=== PATIENT | male | born 1940 | race Two or more races ===

== ENCOUNTER → 2023-10-30 15:03 | Outpatient (REF) | payer BC, SELFPAY | LOC: HWRAD 15:03 | PROVIDERS: ATTENDING PHYSICIAN Registered Nurse; FAMILY PHYSICIAN Family Medicine | DX: M54.50 Low back pain, unspecified (principal) | CPT/HCPCS: 72110 ==

== ENCOUNTER → 2023-11-09 15:33 | Outpatient (REF) | payer BC, SELFPAY | LOC: HWRAD 15:33 | PROVIDERS: ATTENDING PHYSICIAN Registered Nurse | DX: S22.080A Wedge compression fracture of T11-T12 vertebra, initial encounter for closed fracture (principal) | CPT/HCPCS: 77080 ==

== ENCOUNTER → 2024-09-09 17:05 | Outpatient (REF) | payer BC, SELFPAY | LOC: RAD 17:05 | PROVIDERS: ATTENDING PHYSICIAN Family Medicine | DX: M79.642 Pain in left hand (principal) | CPT/HCPCS: 73110; 73120 ==

== ENCOUNTER 2025-02-10 18:27 | Emergency (ER) | payer BC, SELFPAY ==
[2025-02-10 18:31] VITALS: BP 142/72
[2025-02-10 18:58] LABS: Hematocrit 29.2 % (39.0-52.0); Hemoglobin 8.6 g/dL (13.0-18.0); Mean Corp Hgb Conc. 29.5 g/dL (33.0-37.0); Mean Corpuscular Volume 75.8 fL (80.0-94.0); Nucleated Red Blood Cells % 0 % (-); Platelet Count 151 10^3/uL (130-400); Red Cell Dist. Width 18.5 % (11.5-14.5)
[2025-02-10 19:09] LABS: ALT (SGPT) 18 U/L (0-50); AST (SGOT) 22 U/L (17-59); Albumin 3.8 g/dl (3.5-5.0); Alkaline Phosphatase 46 U/L (38-126); Blood Urea Nitrogen 13 mg/dl (9-20); Calcium 9.1 mg/dl (8.4-10.2); Carbon Dioxide 27 mmol/L (22-30); Chloride 105 mmol/L (98-107); Glucose 214 mg/dl (70-99); Potassium 4.5 mmol/L (3.5-5.1); Sodium 133 mmol/L (135-145); Total Protein 6.4 g/dl (6.3-8.2); eGFR > 60.00
== END 2025-02-10 21:23 ==
LOC: EMR 18:27
PROVIDERS: Student in an Organized Health Care Education/Training Program
DX: R79.89 Other specified abnormal findings of blood chemistry (principal)
CPT/HCPCS: 80053; 85025; 86850; 86900; 86901

== ENCOUNTER 2025-02-11 06:52 | Emergency (ER) | payer BC, SELFPAY ==
[2025-02-11 07:00] VITALS: BP 124/59
[2025-02-11 07:29] LABS: Hematocrit 27.6 % (39.0-52.0); Hemoglobin 8.4 g/dL (13.0-18.0); Mean Corp Hgb Conc. 30.4 g/dL (33.0-37.0); Mean Corpuscular Volume 76.0 fL (80.0-94.0); Nucleated Red Blood Cells % 0 % (-); Platelet Count 149 10^3/uL (130-400); Red Cell Dist. Width 18.3 % (11.5-14.5)
[2025-02-11 07:48] LABS: ALT (SGPT) 16 U/L (0-50); AST (SGOT) 16 U/L (17-59); Albumin 3.6 g/dl (3.5-5.0); Alkaline Phosphatase 40 U/L (38-126); Blood Urea Nitrogen 12 mg/dl (9-20); Calcium 8.8 mg/dl (8.4-10.2); Carbon Dioxide 26 mmol/L (22-30); Chloride 107 mmol/L (98-107); Glucose 103 mg/dl (70-99); Potassium 4.0 mmol/L (3.5-5.1); Sodium 136 mmol/L (135-145); Total Protein 6.1 g/dl (6.3-8.2); eGFR > 60.00
[2025-02-11 09:57] VITALS: BP 143/66
[2025-02-11 10:17] LABS: Iron 32 ug/dl (49-181)
--- NOTE | 2025-02-11 10:20 | ED.GENMED ---
History of Present Illness
General
Chief Complaint: Abnormal Lab Value
Time Seen by Provider: 02/11/25 09:16
History of Present Illness
History of Present Illness:
84-year-old male presents with his daughter for evaluation of low hemoglobin and exertional shortness of breath. He is apparently been short of breath for quite some time with intermittent wheezing but with recent outpatient labs showing a
hemoglobin of 9 he was referred to the ED. He is undergoing lab evaluation as part of outpatient management for myasthenia gravis. Recently mycophenolate was added to his regimen in addition to chronic prednisolone, he does take omeprazole daily.
Denies any black or bloody stool. No chest pain or fevers.
Past History
Past History
ED Past Medical History: NIDDM, Other (Ocular Myasthenia Gravis) and Other (BPH)
ED Past Surgical History: Orthopedic
Social History
Tobacco: Non-smoker
Alcohol: None
Personal:
Living: with family
Review of Systems
Review of Systems
Allergies reviewed?: Yes
All Other Systems: ROS reviewed and negative except as documented in HPI and ROS
Phy Exam
Physical Exam
Physical Exam:
GEN: Well appearing, NAD, WDWN
HEENT: Oral mucosa moist, no scleral icterus
Cardiac: Regular rate and rhythm, no murmurs
Lung: No respiratory distress, no tachypnea, lungs clear to auscultation bilaterally
Abdomen: Soft, grossly nontender
Rectal: Brown stool in the rectal vault heme-negative
MSK: No gross deformity or injuries
Skin: Good color, no pallor or jaundice, no rashes
Neuro: AO x3, moves all extremities freely
Psych: Calm, cooperative
Course
Orders/Labs/Results
Orders:
Orders
02/11/25 07:12
CMP [Comprehensive Metabolic Panel] Urgent
Complete Blood Count/With Diff Urgent
Ferritin Urgent
Comment: ADD
Iron Urgent
Comment: ADD
Total Iron Binding Urgent
Comment: ADD
02/11/25 09:23
Add On- LAB Urgent
Tests Added?: ferritin, iron, TIBC
02/11/25 09:48
CR Chest - 2 Views Urgent
Comment:
Reason For Exam: SOB
Abnormal Lab Results
02/11/25
07:12
RBC 3.63 L 10^6/uL
(4.70-6.10)
Hgb 8.4 L g/dL
(13.0-18.0)
Hct 27.6 L %
(39.0-52.0)
MCV 76.0 L fL
(80.0-94.0)
MCH 23.1 L pg
(27.0-31.0)
MCHC 30.4 L g/dL
(33.0-37.0)
RDW 18.3 H %
(11.5-14.5)
MPV 11.4 H fL
(7.4-10.4)
Monocytes % 10.4 H %
(1.7-9.3)
Glucose 103 H mg/dl
(70-99)
Iron 32 L ug/dl
(49-181)
% Saturation 7 L %
(20-50)
AST 16 L U/L
(17-59)
Total Protein 6.1 L g/dl
(6.3-8.2)
02/11/25 07:12
02/11/25 07:12
Vital Signs
Initial and Last Documented VS:
Initial Vital Signs
Temp Pulse Resp BP Pulse Ox
98.8 F 69 18 124/59 100
02/11/25 07:00 02/11/25 07:00 02/11/25 07:00 02/11/25 07:00 02/11/25 07:00
Last Documented Vital Signs
Temp Pulse Resp BP Pulse Ox
98.8 F 60 17 143/66 100
02/11/25 07:00 02/11/25 09:57 02/11/25 09:57 02/11/25 09:57 02/11/25 10:21
MDM/Problems Addressed
MDM/Problems Addressed:
Patient's gradual progressive anemia could be due to intestinal malabsorption from chronic steroid use versus related to her recently initiated mycophenolate. Will start him on high-dose PPIs empirically and refer to GI as an outpatient, will also
start him on oral iron supplementation. I sent a [employer] message to his primary care physician discussing the plan and I am hopeful he can be referred for outpatient iron infusions. In regards to shortness of breath this is most likely a
product of his worsening anemia however cannot discount potential underlying chronic pulmonary condition given the fibrotic appearing changes on chest x-ray, will recommend outpatient pulmonology follow-up. No active wheezing to suggest need for
steroids or nebulizer at this point
*Pulse Oximetry
SaO2: 100
Oxygen Mode of Delivery: Room air
Patient hypoxic: no
*Critical Care Note
Total Time (30-74mins, 75-104mins- exclusive of procedures): Not Applicable
ED Attending Note
-
Portions of this chart may have been created with voice recognition software.� Occasional wrong word or��sound alike� substitutions may have occurred due to the inherent limitations of voice recognition software.
Discharge Plan
Departure
Patient Disposition: Home (Routine Discharge)
Date of Disposition: 02/11/25
Time of Disposition: 10:32
Patient with high blood pressure during this ER visit?: No
Discharge Problem:
Iron deficiency anemia
Instructions: Anemia in adults, possibly from low iron - ED discharge instructions
Prescriptions:
New
pantoprazole 40 mg tablet,delayed release (DR/EC)
40 mg PO BID Qty: 30 0RF
ferrous sulfate 325 mg (65 mg iron) tablet
325 mg PO BID Qty: 60 0RF
No Action
wwkbpedesg-knpogasfghjzg-stmp [Fioricet] 50-300-40 mg capsule
1 cap PO Q8H PRN (Reason: Pain) Qty: 10 0RF
Referrals:
Jack Parham Jr., DO [Family Provider, Internal Medicine]
Hanna Harris MD [Active, Gastroenterology]
Referral Note: Clinic will contact you for appointment
Carlin Patterson MD [Active, Pulmonary Medicine]
Activity Restrictions/Additional Instructions:
Stop your omeprazole in favor of pantoprazole for the next 2 weeks
Begin oral iron supplementation
Follow-up with your primary care provider for outpatient iron infusions
Discuss potentially stopping the mycophenolate with your primary neurologist
For your shortness of breath, please follow up with pulmonology, as your lung x ray shows changes of either scarring or fibrosis
Interventions
Interventions:
*Risk Screen - Suicide Last Done: 02/11/25 07:00
*General Assessment Last Done: 02/11/25 09:55
*Neglect/Abuse Screening Last Done: 02/11/25 09:55
*ED COVID-19 Vaccine History Last Done: 02/11/25 09:55
Discharge Date and Time
Print Language: POLISH
[2025-02-11 10:27] LABS: Total Iron Binding Capacity 402 ug/dl (261-462)
[2025-02-11 11:14] LABS: Ferritin 7.7 ng/ml (17.9-464.0)
== END 2025-02-11 10:58 | disposition home or self-care (01) ==
LOC: EMR 06:52
PROVIDERS: Emergency Medicine; EMERGENCY PHYSICIAN Student in an Organized Health Care Education/Training Program; FAMILY PHYSICIAN Family Medicine
DX: D50.9 Iron deficiency anemia, unspecified (principal); E11.9 Type 2 diabetes mellitus without complications; G70.00 Myasthenia gravis without (acute) exacerbation; N40.0 Benign prostatic hyperplasia without lower urinary tract symptoms; Z79.624 Long term (current) use of inhibitors of nucleotide synthesis
CPT/HCPCS: 99284; 71046; 80053; 82728; 83540; 83550; 85025

== ENCOUNTER 2025-03-03 07:20 | Emergency (ER) | payer BC, SELFPAY ==
[2025-03-03 07:24] VITALS: BP 167/73
--- NOTE | 2025-03-03 07:47 | ED.GENMED ---
History of Present Illness
General
Chief Complaint: Fall
Source: patient and family
Exam Limitations: none
Time Seen by Provider: 03/03/25 07:26
History of Present Illness
History of Present Illness:
See MDM
Past History
Past History
ED Past Medical History: NIDDM, Other (Ocular Myasthenia Gravis) and Other (BPH)
ED Past Surgical History: Orthopedic
Social History
Tobacco: Non-smoker
Alcohol: None
Personal:
Living: with family
Phy Exam
Physical Exam
Physical Exam:
See MDM
Course
Orders/Labs/Results
Orders:
Orders
03/03/25 07:47
CT Facial Bones W/o Iv Contras Urgent
Comment:
Reason For Exam: fall, facial pain and nasal bleeding
CT Head W/o Iv Contrast Urgent
Comment:
Reason For Exam: fall, left forehead injury
03/03/25 09:44
Amoxicillin 875 mg/Clav 125 mg [Augmentin 875 mg/125 mg] 1 tablet PO NOW STA
03/03/25 09:45
CR Chest - 2 Views Urgent
Comment:
Reason For Exam: fall, left and center chest pain
03/03/25 10:24
Oxycodone [Roxicodone] 5 mg PO NOW STA
Vital Signs
Initial and Last Documented VS:
Initial Vital Signs
Temp Pulse Resp BP Pulse Ox
98.0 F 79 16 167/73 97
03/03/25 07:24 03/03/25 07:24 03/03/25 07:24 03/03/25 07:24 03/03/25 07:24
Last Documented Vital Signs
Temp Pulse Resp BP Pulse Ox
98.0 F 79 16 167/73 97
03/03/25 07:24 03/03/25 07:24 03/03/25 07:24 03/03/25 07:24 03/03/25 07:51
Procedures
Laceration Closure
Left Upper Lateral Eye brow:
Status of Wound: clean
Size of Wound in cm: 1.5
Description of Wound Edges: ragged
Preparation: cleaned with soap & water
Anesthesia: 1% Lidocaine with epi
Revision/Debridement: routine- no revision
Wound exploration: explored to base- no FB
Type of Closure: single layer closure
Skin Closure Material: 6-0 nylon
Number of sutures: 2
MDM/Problems Addressed
Differential Diagnosis Includes:
Note:
CHIEF COMPLAINT(S)
Fall with facial injury.
HISTORY OF PRESENT ILLNESS
The patient is an 85-year-old male who experienced a fall at approximately 6:30 AM. He reported attempting to go to the bathroom when he tripped over the bed frame, leading to a fall and subsequent facial injury. On examination, there is significant
bleeding and a laceration above the area of the left eye. The patient also reports difficulty with vision in the affected eye, compounded by a history of ocular myasthenia, which involves weakness of the eyelid muscles. At the moment, patient
denies any change in his baseline vision. The patient is currently under medication for this condition. A thorough examination of the left nare revealed a smaller cut that is expected to heal on its own, but the primary laceration will require
sutures after local anesthesia is administered. A computed tomography (CT) scan of the head and face is planned to assess for any additional injuries such as fractures or intracranial trauma.
Patient apparently is a history of anemia but daughter at bedside states that he had recent blood work showing no changes. He denies any recent bleeding issues.
PAST MEDICAL AND SURIGICAL HISTORY
The patient is known to have ocular myasthenia.
PHYSICAL EXAM
General: Alert, no acute distress.
Skin: Warm, dry.
Head: Normocephalic, atraumatic
Neck: Appears supple, trachea midline.
Eyes, Ears, Nose, Mouth, and Throat: Large hematoma to left upper eyelid with 1.5 cm laceration. Mild chemosis noted to left eye. No hyphema noted
Cardiovascular: No signs of cyanosis
Respiratory: Respirations are non-labored.
Abdomen: Non-distended
Musculoskeletal: No deformities
Neurological: No focal neurological deficit observed.
Psychiatric: Cooperative, appropriate mood and affect.
PLAN
- Administer local anesthesia to the laceration site and suture the wound.
- Perform a CT scan of the head and face to evaluate for any associated fractures or intracranial injuries.
- Monitor and address any further complications related to the ocular myasthenia and ensure appropriate management of the condition.
DIFFERENTIAL DIAGNOSIS
The Differential Diagnosis includes, in no particular order and is not limited to:
1. Facial laceration
2. Orbital fracture
3. Intracranial hemorrhage
4. Concussion
5. Nasal fracture
6. Vision impairment due to trauma
7. Aggravation of ocular myasthenia
8. Soft tissue infection
9. Fracture of the frontal bone
10. Hematoma formation in the periorbital region
03/03/25 - 09:51
Patient and family informed about CT findings, noting zygomatic arch and orbital wall fractures. Patient remains well-appearing and non-toxic. Ice applied to affected area. Due to concern for blood in the sinus, empiric treatment with Augmentin
initiated.
SUMMARY OF ENCOUNTER
The patient, an 85-year-old male, presented to the emergency department following a fall resulting in a facial injury. A laceration above the left eye required assessment for potential sutures. Notable findings included a significant facial
laceration and concern for orbital injuries. The patient has a history of ocular myasthenia complicating his visual assessment. A computed tomography (CT) scan of the head and face confirmed zygomatic arch and orbital wall fractures. Due to
potential blood in the sinus, empiric treatment with amoxicillin and clavulanate potassium was initiated.
DISPOSITION
Discharge.
ASSESSMENT
Facial injury post-fall with confirmed zygomatic arch and orbital wall fractures, potentially with sinus involvement.
EMERGENCY TREATMENTS ADMINISTERED
First dose of amoxicillin and clavulanate potassium administered in the emergency department.
PLAN
The patient will be referred to oral surgery physician. Ice and pain management were discussed for symptomatic relief. Continual monitoring for any worsening symptoms is advised.
INDEPENDENT REVIEW OF LABS AND INTERPRETATION OF TESTS
My independent interpretation of the CT scan of the head and face indicates zygomatic arch and orbital wall fractures.
MEDICATION RECONCILIATION
Amoxicillin and clavulanate potassium (Augmentin) initiated in the emergency department.
MEDICAL DECISION MAKING
- Number and Complexity of Problems Addressed: Chronic conditions affecting care include ocular myasthenia.
- Data:
Category 1: My independent interpretation of the CT scan shows zygomatic arch and orbital wall fractures.
- Risk: Prescription medication was prescribed; amoxicillin and clavulanate potassium for empiric treatment due to concerns of sinus involvement.
Consideration of Admission/Observation: Escalation of care including admission/observation was considered given the complexity and risk of the patients presenting complaint, exam findings, and their underlying comorbidities. However, ultimately I
feel the patient is safe for outpatient management with close follow-up. Reasoning: Work-up reassuring, does not reveal any acute life/organ-threatening processes, patients symptoms well controlled upon reevaluation, reexamination is reassuring,
vitals are stable, patient agreeable with discharge, reliable for follow-up.
DIAGNOSIS
- Facial laceration, ICD-10 Code: S01.81XA
- Zygomatic arch fracture, ICD-10 Code: S02.40XA
- Orbital wall fracture, ICD-10 Code: S02.3XXA
*Pulse Oximetry
SaO2: 97
Oxygen Mode of Delivery: Room air
Patient hypoxic: no
*Critical Care Note
Total Time (30-74mins, 75-104mins- exclusive of procedures): Not Applicable
ED Attending Note
-
Portions of this chart may have been created with voice recognition software.� Occasional wrong word or��sound alike� substitutions may have occurred due to the inherent limitations of voice recognition software.
Discharge Plan
Departure
Patient Disposition: Home (Routine Discharge)
Date of Disposition: 03/03/25
Time of Disposition: 10:16
Patient with high blood pressure during this ER visit?: Yes
Discharge Problem:
Closed fracture of zygomatic arch, Closed fracture of orbital wall
Instructions: BLOOD PRESSURE
Prescriptions:
New
amoxicillin-pot clavulanate 875-125 mg tablet
1 tab PO BID Qty: 14 0RF
oxycodone 5 mg tablet
5 mg PO Q8H PRN (Reason: Pain) Qty: 14 0RF
No Action
yhyhmewotx-phadrsobobymi-hext [Fioricet] 50-300-40 mg capsule
1 cap PO Q8H PRN (Reason: Pain) Qty: 10 0RF
pantoprazole 40 mg tablet,delayed release (DR/EC)
40 mg PO BID Qty: 30 0RF
ferrous sulfate 325 mg (65 mg iron) tablet
325 mg PO BID Qty: 60 0RF
Referrals:
Jack Parham Jr., DO [Family Provider, Internal Medicine]
Dash Mcleod MD, DDS [Active, Oral Surgery]
Activity Restrictions/Additional Instructions:
Please return for any worsening symptoms.
You may return at any time if you have further concerns.
Please follow up with your doctor at the first available appointment, preferably this week.
Please make an appointment to see the maxillofacial surgeon soon as possible.
Thank you for choosing [facility].
Interventions
Interventions:
*Risk Screen - Suicide Last Done: 03/03/25 07:24
*Neglect/Abuse Screening Last Done: 03/03/25 07:24
ED-Musculoskeletal Assessment Last Done: 03/03/25 07:49
ED- Neurological Assessment Last Done: 03/03/25 07:49
ED-Skin Assessment Last Done: 03/03/25 07:49
Discharge Date and Time
Print Language: KOSOVAN
[2025-03-03] MEDS: AUGMENTIN 875 MG/125 MG 1 TABLET PO (10:31)
[2025-03-03] MEDS: ROXICODONE 5 MG PO (10:31)
== END 2025-03-03 10:50 | disposition home or self-care (01) ==
LOC: EMR 07:20
PROVIDERS: EMERGENCY PHYSICIAN Student in an Organized Health Care Education/Training Program; FAMILY PHYSICIAN Family Medicine
DX: S02.40FA Zygomatic fracture, left side, initial encounter for closed fracture (principal); S02.842A Fracture of lateral orbital wall, left side, initial encounter for closed fracture; S02.32XA Fracture of orbital floor, left side, initial encounter for closed fracture; S02.42XA Fracture of alveolus of maxilla, initial encounter for closed fracture; S01.112A Laceration without foreign body of left eyelid and periocular area, initial encounter; E11.9 Type 2 diabetes mellitus without complications; G70.00 Myasthenia gravis without (acute) exacerbation; N40.0 Benign prostatic hyperplasia without lower urinary tract symptoms; W01.190A Fall on same level from slipping, tripping and stumbling with subsequent striking against furniture, initial encounter; Y92.003 Bedroom of unspecified non-institutional (private) residence as the place of occurrence of the external cause
CPT/HCPCS: 99284; 12011; 70450; 70486; 71046

== ENCOUNTER 2025-03-10 15:27 | Outpatient (RCR) | payer BC, SELFPAY ==
[2025-03-10 14:45] LABS: Hematocrit 31.5 % (39.0-52.0); Hemoglobin 9.5 g/dL (13.0-18.0); Mean Corp Hgb Conc. 30.2 g/dL (33.0-37.0); Mean Corpuscular Volume 79.3 fL (80.0-94.0); Platelet Count 142 10^3/uL (130-400); Red Cell Dist. Width 21.7 % (11.5-14.5)
== END 2025-03-25 23:59 | disposition home or self-care (01) ==
LOC: OID 15:27
PROVIDERS: ATTENDING PHYSICIAN Registered Nurse
DX: D50.8 Other iron deficiency anemias (principal); R53.81 Other malaise
CPT/HCPCS: 85025

== ENCOUNTER → 2025-03-18 12:59 | Outpatient (REF) | payer BC, SELFPAY | LOC: RAD 12:59 | PROVIDERS: ATTENDING PHYSICIAN Registered Nurse | DX: M54.50 Low back pain, unspecified (principal) | CPT/HCPCS: 72110; 73502 ==

== ENCOUNTER 2025-03-19 10:39 | Emergency (ER) | payer OTHER, SELFPAY ==
[2025-03-19 10:52] VITALS: BP 107/53
--- NOTE | 2025-03-19 12:04 | ED.GENMED ---
History of Present Illness
General
Chief Complaint: Back Pain
Source: patient
Exam Limitations: none
Time Seen by Provider: 03/19/25 11:46
Nursing documentation reviewed up to this point in time: agreed with
History of Present Illness
History of Present Illness:
85-year-old male with a past medical history as noted presents to the ER with his daughters for evaluation of back pain. Patient reportedly has a T12 compression fracture from prior falls which is known. Apparently 2 weeks ago had a minor fall
onto his bottom�daughter said that he was trying to sit down and missed the chair and landed on his bottom forcefully. Since that time he has had worsening pain in the right side of his low back and he has been having radicular symptoms down the
right leg which she describes as 'like an electric current.' Symptoms are worse with movement and particularly with ambulation. No incontinence of bowel or bladder, weakness or numbness in the legs, no symptoms in the left leg. Patient seen by
his primary doctor 2 days ago and was prescribed prednisone taper (currently on day 3) and muscle relaxer which has not resulted in any improvement in symptoms. Given his functional limitations daughters brought him to the ER to be assessed. He
did have outpatient imaging with x-ray of the lumbar spine and hip done on 03/18�x-ray showed multiple compression fractures in the thoracolumbar spine most notably at T12 worsened compared to prior; x-ray of the hip showed arthritis but no acute
abnormalities.
Past History
Past History
ED Past Medical History: NIDDM, Other (Ocular Myasthenia Gravis) and Other (BPH)
ED Past Surgical History: Orthopedic
Social History
Tobacco: Non-smoker
Alcohol: None
Personal:
Living: with family
Review of Systems
Review of Systems
All Other Systems: ROS reviewed and negative except as documented in HPI and ROS
Constitutional: Denies fever
Respiratory: Denies trouble breathing
Cardiac: Denies chest pain
ABD/GI: Denies abdominal pain, nausea or vomiting
: Denies flank pain
Musculoskeletal: Reports back pain
Neurological: Denies dizzy, headache, weakness or numbness
Phy Exam
Physical Exam
Physical Exam:
General: Awake, alert, no acute distress
Head: Normocephalic, atraumatic
Eyes: Conjunctiva normal
Throat: Airway intact, handling secretions
Neck: Trachea midline
Lungs: Clear to auscultation bilaterally, no wheezing, rales, rhonchi
Heart: Regular rate and rhythm, no murmurs, gallops, or rubs
Abd: Soft, non distended, nontender
Back: He has tenderness in the paraspinal region lower thoracic upper lumbar with some midline upper lumbar tenderness as well; negative straight leg raise test
Neuro: Cranial nerves grossly intact, speech fluid; patient has some slight weakness on dorsiflexion of the right great toe but good strength on plantarflexion and proximal flexion of the lower extremity on the right, sensory grossly intact on the
right, strength and sensory intact 5/5 left lower extremity
Skin: No rash in area of concern
Extremities: No edema in extremities, equal pulses in all extremities; allows for full passive range of motion of the right hip with no pain while supine
Scores
Heart Failure Risk
Heart Failure Risk Score: Not Applicable
Heart Score for Chest Pain Patients
STEMI patient?: Not applicable
Withdrawal Assessment of Alcohol
Withdrawal Assessment Completed?: Not applicable
Course
Orders/Labs/Results
Orders:
Orders
03/19/25 12:03
Case Management Consult ONCE
Case Management Consult: VN/Home Care
Ketorolac [Toradol] 30 mg IM NOW STA
Pt Eval And Treat Urgent
Activity Level: With Assistance
Vital Signs
Initial and Last Documented VS:
Initial Vital Signs
Temp Pulse Resp BP Pulse Ox
37.0 C 80 16 107/53 100
03/19/25 10:52 03/19/25 10:52 03/19/25 10:52 03/19/25 10:52 03/19/25 10:52
Last Documented Vital Signs
Temp Pulse Resp BP Pulse Ox
37.0 C 80 16 107/53 100
03/19/25 10:52 03/19/25 10:52 03/19/25 10:52 03/19/25 10:52 03/19/25 12:04
MDM/Problems Addressed
Differential Diagnosis Includes:
Radiculopathy, symptomatic compression fracture, osteoarthritis
MDM/Problems Addressed:
85-year-old male presents for evaluation of worsening back pain with radicular symptoms down the right leg over the past 2 weeks since a fall onto his bottom. Outpatient imaging showed worsening compression fracture particularly T12. He has been
on steroid taper he is on day 3 as well as a muscle relaxer but these measures have not provided adequate pain control and he is functionally limited which prompted ER visit. Vitals and exam are as above. Would hold off on repeat imaging at this
point as she has no signs or symptoms of cauda equina syndrome or other spinal emergency overall clinical picture is consistent with worsening pain from compression fractures and likely an element of sciatica/radiculopathy. Would continue steroids
and can treat symptomatically but ultimately would benefit from more support at home versus short-term rehab given reported functional limitations. Discussed with physical therapy and case management for an assessment. Daughters feel comfortable
with this.
Patient evaluated by PT recommending short-term rehab. Daughters are comfortable with this, trimming caser will work towards placement.
*Radiology
Radiology exam reviewed: radiology read reviewed
*Pulse Oximetry
SaO2: 100
Oxygen Mode of Delivery: Room air
Patient hypoxic: no (100%)
*Critical Care Note
Total Time (30-74mins, 75-104mins- exclusive of procedures): Not Applicable
Data Reviewed
Review of Other/Old Records Reveals: Records and Radiology Studies
Source: patient and family
Patient Management
Discussion with other providers: Other (Discussed with trimming caser, discussed with PT)
Escalation/DeEscalation of care consider admission/obs:
Skilled rehab
ED Attending Note
-
Portions of this chart may have been created with voice recognition software.� Occasional wrong word or��sound alike� substitutions may have occurred due to the inherent limitations of voice recognition software.
Discharge Plan
Departure
Patient Disposition: Acute Rehab Facility
Date of Disposition: 03/19/25
Time of Disposition: 13:22
Discharge Problem:
Compression fracture, Radiculopathy
Prescriptions:
No Action
muodcinkba-enjkdbstzcsdw-xxxe [Fioricet] 50-300-40 mg capsule
1 cap PO Q8H PRN (Reason: Pain) Qty: 10 0RF
pantoprazole 40 mg tablet,delayed release (DR/EC)
40 mg PO BID Qty: 30 0RF
ferrous sulfate 325 mg (65 mg iron) tablet
325 mg PO BID Qty: 60 0RF
amoxicillin-pot clavulanate 875-125 mg tablet
1 tab PO BID Qty: 14 0RF
oxycodone 5 mg tablet
5 mg PO Q8H PRN (Reason: Pain) Qty: 14 0RF
Referrals:
Jack Parham Jr., DO [Family Provider, Internal Medicine]
Interventions
Interventions:
*Risk Screen - Suicide Last Done: 03/19/25 10:52
*Neglect/Abuse Screening Last Done: 03/19/25 10:52
ED-Musculoskeletal Assessment Last Done: 03/19/25 12:14
Discharge Date and Time
Print Language: AZERI
[2025-03-19] MEDS: TORADOL 30 MG IM (12:08)
--- NOTE | 2025-03-19 12:48 | CM ---
Addendum entered by Ailyn Restrepo 03/19/25 16:02:
I spoke to pt's daughter Ria, asked her to bring all of pt's medications to the hospital.
Addendum entered by Ailyn Restrepo 03/19/25 15:55:
[facility] report number [phone]/fax [phone]
Addendum entered by Ailyn Restrepo 03/19/25 15:43:
Approved for [facility], auth number [id number], approved for 6 days, next review 03/24/25. Phone number for review [phone]. Ambulance auth for [facility] [id number].
Addendum entered by Ailyn Restrepo 03/19/25 13:28:
PT recommending SNF, discussed with family, they are not familiar with facilities in the area. Agreeable to referrals to [facility], [facility] and [facility] [place]. referrals will be sent via [facility] as soon as PT note is available.
Original Note:
Received CM consult. Pt lives with his and daughter in 2 story home, [address]. First floor half bath, full flight to second floor bedroom and full bath. Pt has been sleeping on first floor for past several days.
Independent in ADLs and personal car, ambulates with RW. Also has shower chair. Pt has had difficulty ambulating for past several days due to back pain.
Confirms prescription coverage.
PCP: Dr Parham at [facility]
Pharmacy: [facility].
Awaiting PT consult and recommendations.
[2025-03-19 13:23] VITALS: BP 169/84
[2025-03-19 13:28] VITALS: BP 169/84; PULSE 69; O2SAT 100
[2025-03-19 16:39] VITALS: BP 161/77
[2025-03-19 16:40] VITALS: BP 161/77
--- NOTE | 2025-03-19 16:46 | PTCARENOTE ---
Report called to [facility]. 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 Family at bedside and aware.
== END 2025-03-19 18:45 ==
LOC: EMR 10:39
PROVIDERS: EMERGENCY PHYSICIAN Emergency Medicine; FAMILY PHYSICIAN Family Medicine
DX: M54.10 Radiculopathy, site unspecified (principal); S22.080A Wedge compression fracture of T11-T12 vertebra, initial encounter for closed fracture; W19.XXXA Unspecified fall, initial encounter; E11.9 Type 2 diabetes mellitus without complications
CPT/HCPCS: 96372; 99284

== ENCOUNTER → 2025-04-12 07:46 | Outpatient (REF) | payer BC, SELFPAY | LOC: PAVMRI 07:46 | PROVIDERS: ATTENDING PHYSICIAN Physician Assistant; FAMILY PHYSICIAN Family Medicine | DX: M54.16 Radiculopathy, lumbar region (principal); S22.080A Wedge compression fracture of T11-T12 vertebra, initial encounter for closed fracture; S32.010A Wedge compression fracture of first lumbar vertebra, initial encounter for closed fracture; S32.030A Wedge compression fracture of third lumbar vertebra, initial encounter for closed fracture; S32.050A Wedge compression fracture of fifth lumbar vertebra, initial encounter for closed fracture; Z91.81 History of falling | CPT/HCPCS: 72148 ==